=== PATIENT | male | born 1975 | race Caucasian/White ===

== ENCOUNTER 2020-04-15 18:22 | Emergency (ER) | payer SELFPAY ==
--- NOTE | 2020-04-15 20:58 | RAD ---
LEFT FOREARM TWO VIEWS: Date: 04-15-2020 FINDINGS: No fracture was seen. The radius and ulna appear intact. There is no joint effusion at the elbow. Whi le an incomplete view of the wrist, the carpal bones appeared grossly intact. IMPRESSION: No acute findings. POS: HOME
== END 2020-04-15 19:15 | disposition home or self-care (01) ==
LOC: BURERS 18:22
DX: S63.502A Unspecified sprain of left wrist, initial encounter (principal); S50.12XA Contusion of left forearm, initial encounter; F41.9 Anxiety disorder, unspecified; F17.210 Nicotine dependence, cigarettes, uncomplicated; Z79.899 Other long term (current) drug therapy; W18.30XA Fall on same level, unspecified, initial encounter; Y93.01 Activity, walking, marching and hiking

== ENCOUNTER 2021-04-29 21:07 | Emergency (ER) | payer SELFPAY ==
[2021-04-29] MEDS ORDERED: Lidocaine 1% PF 5 ML VIAL ONE (21:29)
[2021-04-29] MEDS ORDERED: Bacitracin 1 PK ONE ×2 (22:14→23:00)
[2021-04-29] MEDS ORDERED: cefTRIAXone\\ROCEPHIN 1 GM VIAL ONE (22:15)
== END 2021-04-29 23:15 | disposition home or self-care (01) ==
LOC: BURERS 21:07
DX: S61.411A Laceration without foreign body of right hand, initial encounter (principal); F17.210 Nicotine dependence, cigarettes, uncomplicated; W45.8XXA Other foreign body or object entering through skin, initial encounter
CPT/HCPCS: 12002; 96372; J0696

== ENCOUNTER 2021-08-18 04:38 | Emergency (ER) | payer SELFPAY ==
[2021-08-18] MEDS ORDERED: Cefuroxime 500 MG TAB ONE (05:32)
[2021-08-18] MEDS ORDERED: CEFAZOLIN 1 GM VIAL ONE (05:33)
[2021-08-18 05:46] LABS: PTT 29.4 sec (22.9-36.1); Prothrombin Time 13.1 sec (12.0-14.7)
[2021-08-18 05:48] LABS: #Basophils 0.1 thou/uL (0.0-0.2); #Eosinphils 0.3 thou/uL (0.0-0.7); #Lymphocytes 1.6 thou/uL (1.20-3.40); #Monocytes 0.5 thou/uL (0.11-0.59); #Neutrophils 8.2 thou/uL (1.40-6.50); %Basophils 0.7 % (0.0-1.0); %Lymphocytes 14.9 % (21.0-51.0); %Neutrophils 76.4 % (42.0-75.0); Hemoglobin 11.6 g/dL (14.0-18.0); Mean Corpuscular HGB CONC 33.9 g/dL (32.0-36.0); Mean Corpuscular Hemoglobin 27.7 pg (27.0-31.0); Mean Corpuscular Volume 81.9 fL (78.0-98.0); Mean Platelet Volume 6.6 fL (7.4-10.4); Platelet Count 244 thou/uL (130-400); RBC Distribution Width 13.1 % (11.5-14.5); Red Blood Cell (RBC) Count 4.17 mill/uL (4.70-6.10); White Blood Cell (WBC) Count 10.8 thou/uL (4.8-10.8)
[2021-08-18 05:55] LABS: ALT (SGPT) 18 U/L (8-55); AST (SGOT) 23 U/L (5-34); Albumin 3.9 g/dL (3.5-5.0); Alkaline Phosphatase 73 U/L (40-110); Anion Gap 14 mmol/L (10-20); BUN (Urea Nitrogen) 15 mg/dL (8.9-20.6); Bilirubin, Total 0.2 mg/dL (0.2-1.2); Calc. Creatinine Clearance 0 mL/min (70-130); Calcium 9.3 mg/dL (7.8-10.44); Carbon Dioxide 25 mmol/L (22-29); Chloride 105 mmol/L (98-107); Globulin 3.1 g/dL (2.4-3.5); Glucose 104 mg/dL (70-105); Potassium 4.1 mmol/L (3.5-5.1); Sodium 140 mmol/L (136-145)
== END 2021-08-18 05:45 | disposition short-term general hospital (02) ==
LOC: BURERS 04:38
DX: I63.9 Cerebral infarction, unspecified (principal); I10 Essential (primary) hypertension; E72.51 Non-ketotic hyperglycinemia; F17.210 Nicotine dependence, cigarettes, uncomplicated
CPT/HCPCS: 80053; 80307; 85025; 85610; 85730; 96374; J0690